=== PATIENT | female | born 1975 | race Native Hawaiian/Other Pacific Islander ===

== ENCOUNTER 2022-04-11 08:50 | Emergency (ER) | payer OTHER ==
[2022-04-11 08:57] VITALS: BP 130/76; PULSE 66; RESP 18; TEMP 98.2; BMI 26.1
[2022-04-11] MEDS ORDERED: ALBUTEROL SO4 HFA INHALER IH ONE ×2 (09:40→09:44)
[2022-04-11] MEDS ORDERED: predniSONE 20 MG TABLET (UD) ONE (09:44)
[2022-04-11] MEDS ORDERED: predniSONE 20 MG TABLET (UD) PO SCH (10:00)
== END 2022-04-11 11:06 | disposition home or self-care (01) ==
LOC: JER 08:50
DX: J20.9 Acute bronchitis, unspecified (principal)
CPT/HCPCS: 71046-TC-FY; 99281-25